=== PATIENT | male | born 1965 | race Caucasian/White ===

== ENCOUNTER 2025-05-27 10:52 | Emergency (ER) | payer BC, SELFPAY ==
--- OUTSIDE RECORDS SUMMARY | 2025-05-27 10:57 | XMS_ITS | Encounter Summary ---
Author Organization [facility] Address [address] [place] [address] Phone Care Team Providers Care Scene Shifter Name Role Phone Roddy Pinon Primary Care Provider Ariel Juarez MD Unavailable Reason for Visit * Reason Comments Medication Refill Encounter Details Date Type Department Care Team (Late st Contact Info) Description 05/11/2023 [facility] [place] [address] [place] [address] Roddy Pinon PAC [address] [place] [address] Medication Refill Social History Tobacco Use Types Packs/Day Years Used Date Smoking Tobacco: Never Smokeless Tobacco: Never Alcohol Use Standard Drinks/Week Comments Yes 0 (1 standard drink = 0.6 oz pur e alcohol) occassionally- beer on weekend PHQ-2 Answer Date Recorded Total Score - Questions 1-9 0 08/01 Sexually Active Control Partners Comments Yes Female Sex and Gender Information Value Date Recorded Sex Assigned at Not on file Legal Sex Male 10:46 AM CDT Gender Identity Not on file Sexual Orientation Not on file documented as of this encounter Miscellaneous Notes * Telephone Encounter - Teresa Salcedo RN - 05/12/2023 11:16 AM CST ezetimibe (ZETIA) 10 MG Tablet 90 Tablet 0 03/05/2023 -- Refill too soon MACHINE TENDER documented in this encounter Plan of Treatment Upcoming Encounters Date Type Department Care Team (Late st Contact Info) Description 09/20/2025 8:10 AM CDT Lab [facility] [address] [place] [address] 09/26/2025 7:45 AM CDT Office Visit [facility] [address] [place] [address] Roddy Pinon PAC [address] [place] [phone] documented as of this encounter Visit Diagnoses Diagnosis Mixed hyperlipidemia documented in this encounter Additional Health Concerns Assessment Noted Time PHQ-9 Depression Total Score: 0 08/22/19 7:00 AM CDT documented as of this encounter Care Teams Scene Shifter Relationship Specialty Start Date End Date Roddy Pinon PAC [address] [place] [phone] PCP - General Physician Online Journalist 02/28/23 Ariel Juarez MD [address] [place] [address] Consulting Physician Neurology 03/28/22 documented as of this encounter
--- OUTSIDE RECORDS SUMMARY | 2025-05-27 10:57 | XMS_ITS | Clinical Summary ---
Author Organization [facility] Address [address] [place] [address] Phone Care Team Providers Care Tubular Riveter Name Role Phone Roddy Pinon Primary Care Provider [phone] Ariel Juarez MD Unavailable [phone] Allergies No known active allergies Medications losartan (COZAAR) 50 MG TabletIndications :Primary hypertension TAKE 1 TABLET BY MOUTH DAILY 90 Tablet 3 11/15/2024 Active Active Problems Problem Noted Date Diagnosed Date Colon cancer screening 01/28/2020 Hyperlipidemia 10/16/2013 Overview (02/11/2022): HYPERLIPIDEMIA NEC/NOS Hypertension Encounters Date Type Department Care Team Description 03/17/2025 7:45 AM CDT Office Visit [facility] [place] [address] [place] [address] Roddy Pinon, WILLIAM Type 2 diabetes mellitus without complication, without long-term current use of insulin (Primary Dx); Primary hypertension; Mixed hyperlipidemia Discharge Disposition: Discharged to home or Selfcare 03/15/2025 9:40 AM CDT Lab [facility] [place] [address] [place] [address] Mixed hyperlipidemia; Primary hypertension; IFG (impaired fasting glucose) Discharge Disposition: Discharged to home or Selfcare 03/15/2025 Results Follow-Up [facility] - Primary Care - [place] [place] [address] Martha Contreras, MOBILE APPLICATION DEVELOPER, WEIGH AND CHARGE WORKER CMP (COMPREHENSIVE METABOLIC PANEL), LIPID PANEL, HEMOGLOBIN A1C W/ ESTIMATED GLUCOSE 03/14/2025 Travel from Last 3 Months Immunizations Immunization Administration Dates Next Due Influenza Vaccine 08/12/2013 TDAP Vaccine 09/20/2018 Family History Medical History Relation Name Comments Heart Attack Brother 1 Stroke Brother 2 Heart Attack Father quadruple bypas s Heart Disease Father High Cholesterol Father Hypertension Father Cancer Mother lung Lung Cancer Mother Hypertension Sister 1 No Known Problems Sister 2 No Known Problems Son 1 No Known Problems Son 2 Relation Name Status Comments Brother 1 Alive Brother 2 Alive Father Mother Sister 1 Alive Sister 2 Alive Son 1 Alive Son 2 Alive Social History Tobacco Use Types Packs/Day Years Used Date Smoking Tobacco: Never Passive Smoke Exposure: Never Smokeless Tobacco: Never Tobacco Cessation:Counseling Given: No Alcohol Use Standard Drinks/Week Comments Yes 0 (1 standard drink = 0.6 oz pur e alcohol) occassionally- beer on weekend [employer] Answer Date Recorded In the past 12 months has [employer] electric, gas, oil, or water company threatened to shut off services in your home? No 07/05/2024 Social Connection and Isolation Panel Answer Date Recorded In a typical week, how many times do you talk on the phone with family, friends, or neighbors? Once a week 07/05/2024 How often do you get together with friends or re latives? Once a week 07/05/2024 How often do you attend confucianist or judaism serv ices? Never 07/05/2024 Do you belong to any clubs o r organizations such as confucianist groups, unions, fraternal or athletic groups, or school groups? No 07/05/2024 How often do you attend meet ings of the clubs or organizations you belong to? Never 07/05/2024 Are you , , di vorced, , never , or living with a partner? 07/05/2024 AUDIT-C Answer Date Recorded Q1: How often do you have a drink containing alc ohol? 2-4 times a month 07/05/2024 Q2: How many drinks containi ng alcohol do you have on a typical day when you are drinking? 3 or 4 07/05/2024 Q3: How often do you have si x or more drinks on one occasion? Less than monthly 07/05/2024 Overall Financial Resource Strain (CARDIA) Answe r Date Recorded How hard is it for you to pa y for the very basics like food, housing, medical care, and heating? Not hard at all 07/05/2024 PHQ-2 Answer Date Recorded Total Score - Questions 1-9 0 07/2024 [facility] of Occupat ional Health - Occupational Stress Questionnaire Answer Date Recorded Do you feel stress - tense, restless, nervous, or anxious, or unable to sleep at night because your mind is troubled all the time - these days? Not at all 07/05/2024 Exercise Vital Sign Answer Date Recorde d On average, how many days pe r week do you engage in moderate to strenuous exercise (like a brisk walk)? 3 days 07/05/2024 On average, how many minutes do you engage in exercise at this level? 10 min 07/05/2024 Hunger Vital Sign Answer Date Recorded Within the past 12 months, y ou worried that your food would run out before you got the money to buy more. Never true 07/05/19 25 Within the past 12 months, t he food you bought just didn't last and you didn't have money to get more. Never true 07/05/2024 PRAPARE - Transportation Answer Date Re corded In the past 12 months, has l ack of transportation kept you from medical appointments or from getting medications? No 07/2024 In the past 12 months, has l ack of transportation kept you from meetings, work, or from getting things needed for daily living? No 07/05/2024 Housing Stability Vital Sign Answer Alex e Recorded In the last 12 months, was t here a time when you were not able to pay the mortgage or rent on time? No 07/05/2024 In the past 12 months, how m any times have you moved where you were living? 1 07/05/2024 At any time in the past 12 m [facility], were you homeless or living in a fpc (including now)? No 07/05/2024 Sexually Active Control Partners Comments Yes Female Sex and Gender Information Value Date Recorded Sex Assigned at Not on file Legal Sex Male 10:46 AM CDT Gender Identity Not on file Sexual Orientation Not on file Last Filed Vital Signs Vital Sign Reading Time Taken Comments Blood Pressure 118/80 03/17/2025 7:49 AM CDT Pulse 58 03/17/2025 7:49 AM CDT Temperature 37 C (98.6 F) 03/17/2025 7:49 AM CDT Respiratory Rate 20 03/17/2025 7:49 AM CDT Oxygen Saturation 98% 03/17/2025 7:49 AM CDT Inhaled Oxygen Concentration - - Weight 126.1 kg (278 lb) 03/17/2025 7:49 AM CDT Height 182.9 cm (6') 07/05/2024 7:04 AM AIRCRAFT MAINTENANCE MANAGER Body Mass Index 37.7 07/05/2024 7:04 AM AIRCRAFT MAINTENANCE MANAGER Plan of Treatment Upcoming Encounters Date Type Department Care Team (Late st Contact Info) Description 09/20/2025 8:10 AM CDT [facility] [place] [address] [place] [address] 09/26/2025 7:45 AM CDT Office Visit [facility] [address] [place] [phone] Roddy Pinon, WILLIAM [address] [place] [phone] Health Maintenance Due Date Last Done Comments Pneumococcal Immunization (5 0+ years) (1 of 2 - PCV) 08/09/1983 Cologuard 2009 Immunochemical Fecal Occult Blood 2009 Zoster Immunization (1 of 2) 2014 SARS-COV-2 Immunization (1 - season) 2025 Colonoscopy 02/23/2025 02/24/2020 Colorectal Cancer Screening 02/23/2025 Td Immunization Every 10 Yea rs (Adults With 1 Tdap) 09/20/2028 09/20/2018 Respiratory Syncytial Virus (RSV) Immunization (Adult) (1 - 1-dose 75+ series) 08/09/2039 Influenza Immunization Discontinued 08/12/2013 DTaP/Tdap/Td Immunization Discontinued 2018, 08/31/2018 Hepatitis C Virus (HCV) Screening Completed 01/18/2020 PSA Discussion Completed 02/11/2022, 01/18/2020, 05/10/2019 Hepatitis B Immunization Aged Out No longer eligible based on patient's age to complete this topic Human Papillomavirus (HPV) Immunization (No Doses Required) Completed Meningococcal Immunization (ACWY) Aged Out No longer eligible based on patient's age to complete this topic Rotavirus Immunization Aged Out No lo nger eligible based on patient's age to complete this topic Procedures Procedure Name Priority Date/Time Associated Diagnosis Comments HEMOGLOBIN A1C W/ ESTIMATED GLUCOSE Routine 03/15/2025 9:09 AM CDT Mixed hyperlipidemia Primary hypertension IFG (impaired fasting glucose) LIPID PANEL Routine 03/15/2025 9:09 AM CDT Mixed hyperlipidemia Primary hypertension IFG (impaired fasting glucose) CMP (COMPREHENSIVE METABOLIC PANEL) Routine 03/15/2025 9:09 AM CDT Mixed hyperlipidemia Primary hypertension IFG (impaired fasting glucose) PSA FREE & TOTAL Routine 02/11/2022 7:30 AM CDT Preventative health care (Adult) HEPATITIS C ANTIBODY Routine 01/18/2020 9:05 AM CDT Preventative health care (Adult) from Last 3 Months or Most Recently Relevant to Health Maintenance Results * (ABNORMAL) HEMOGLOBIN A1C W/ ESTIMATED GLUCOSE (03/15/2025 9:09 AM CDT) HGB-A1C 6.4(H) 4.0 - 6.0 % 03/15/2025 1:10 PM CDT [facility] Est Average Glucose 137.0 mg/dL 03/15/2025 1:10 PM CDT [facility] Blood Venipuncture / Unknown 03/15/2025 9:09 AM CDT 03/15/2025 9:09 AM CDT Narrative [facility] - 03/15/2025 1:10 PM CDT HEMOGLOBIN A1C: DIABETIC PATIENTS: WELL-CONTROLLED: 6.2 - 7.0 INTERMEDIATE WELL-CONTROLLED: 7.0 - 9.0 POORLY-CONTROLLED: >9.0 Specimens containing greater than 5% of Hemoglobin F may result in lower than expected % HbA1C results. Martha Contreras APRN, CNP CHEMISTRY ORDER FREEMAN Final Result [facility] [address] [place] [address] * (ABNORMAL) LIPID PANEL (03/15/2025 9:09 AM CDT) CHOLESTEROL 157 <200 mg/dL 03/15/2025 1:13 PM CDT [facility] TRIGLYCERIDES 170(H) <150 mg/dL 03/15/2025 1:13 PM CDT [facility] HDL CHOLESTEROL 33(L) >40 mg/dL 1:13 PM CDT [facility] LDL 90 <130 mg/dL 03/15/2025 1:13 PM CDT [facility] VLDL 34 10 - 50 mg/dL 03/15/2025 1:13 PM CDT [facility] CHOL/HDL RATIO 4.8(H) 0.0 - 4.4 03/15/2025 1:13 PM CDT [facility] NON-HDL CHOLESTEROL 124 <130 mg/dL 03/15/2025 1:13 PM CDT [facility] IS THE PATIENT REQUIRED TO BE FASTING? Yes 03/15/2025 1:13 PM CDT [facility] HAS THE PATIENT BEEN FASTING? Yes 03/15/2025 1:13 PM CDT [facility] Blood Venipuncture / Unknown 03/15/2025 9:09 AM CDT 03/15/2025 9:09 AM CDT us Martha Contreras MOBILE APPLICATION DEVELOPER, WEIGH AND CHARGE WORKER CHEMISTRY ORDER FREEMAN Final Result [facility] [address] [place] [address] * (ABNORMAL) CMP (COMPREHENSIVE METABOLIC PANEL) (03/15/2025 9:09 AM CDT) SODIUM 140 136 - 145 mmol/L 03/15/2025 1:13 PM CDT [facility] POTASSIUM 4.5 3.5 - 5.1 mmol/L 03/15/2025 1:13 PM CDT [facility] CHLORIDE 106 98 - 107 mmol/L 03/15/2025 1:13 PM CDT [facility] CO2, VENOUS 27 22 - 30 mmol/L 03/15/2025 1:13 PM CDT [facility] ANION GAP 11.5 <18.0 mmol/L 03/15/2025 1:13 PM CDT [facility] GLUCOSE 125(H) 70 - 99 mg/dL 03/15/2025 1:13 PM CDT [facility] BUN 23 8 - 26 mg/dL 03/15/2025 1:13 PM CDT [facility] CREATININE, BLOOD 1.18 0.70 - 1.30 mg/dL 03/15/2025 1:13 PM CDT [facility] BUN/CREATININE RATIO 19 12 - 20 ratio 03/15/2025 1:13 PM CDT [facility] TOTAL PROTEIN 7.0 6.0 - 8.0 g/dL 03/15/2025 1:13 PM CDT [facility] ALBUMIN 4.5 3.5 - 5.0 g/dL 03/15/2025 1:13 PM CDT [facility] A/G RATIO 1.8 1.0 - 2.2 03/15/2025 1:13 PM CDT [facility] CALCIUM 9.5 8.7 - 10.5 mg/dL 03/15/2025 1:13 PM CDT [facility] T BILI 0.7 0.2 - 1.2 mg/dL 03/15/2025 1:13 PM CDT [facility] SGOT (AST) 32 <43 U/L 03/15/2025 1:13 PM CDT [facility] SGPT (ALT) 42 <56 U/L 03/15/2025 1:13 PM CDT [facility] ALKALINE PHOSPHATASE 67 40 - 150 U/L 03/15/2025 1:13 PM CDT [facility] IS THE PATIENT REQUIRED TO BE FASTING? No 03/15/2025 1:13 PM CDT [facility] GFR, ESTIMATED >60 >=60 03/15/2025 1:13 PM CDT [facility] Comment: Creatinine Clearance is the preferred criteria for selecting drug dose adjustments in renally impaired patients. The GFR is provided as additional pertinent clinical information. GFR is reported in mL/min/1.73 sq m. Calculation based on the 2020 Chronic Kidney Disease Epidemiology Collaboration (CKD-EPI) equation refit without adjustment for race. GFR, EST. >60 >=60 1:13 PM CDT [facility] Comment: Creatinine Clearance is the preferred criteria for selecting drug dose adjustments in renally impaired patients. The GFR is provided as additional pertinent clinical information. GFR is reported in mL/min/1.73 sq m. Calculation based on the 2009 Chronic Kidney Disease Epidemiology Collaboration (CKD-EPI). GFR, EST. NONAFRICAN >60 >=60 03/15/2025 1:13 PM CDT [facility] Comment: Creatinine Clearance is the preferred criteria for selecting drug dose adjustments in renally impaired patients. The GFR is provided as additional pertinent clinical information. GFR is reported in mL/min/1.73 sq m. Calculation based on the 2009 Chronic Kidney Disease Epidemiology Collaboration (CKD-EPI). Blood Venipuncture / Unknown 03/15/2025 9:09 AM CDT 03/15/2025 9:09 AM CDT us Martha Contreras APRN, WEIGH AND CHARGE WORKER CHEMISTRY ORDER FREEMAN Final Result [facility] [address] [facility] [place] [address] * PSA FREE & TOTAL (02/11/2022 7:30 AM CDT) Prostatic Specific Antigen, Free 0.18 ng/mL [address] 02/11/2022 11:33 PM CDT [facility] PSA, TOTAL (PROSTATIC SPECIFIC ANTIGEN) 0.38 <4.00 ng/mL [address] 02/11/2022 11:33 PM CDT [facility] PSA, % FREE 47.4 % [address] 02/11/2022 11:33 PM CDT [facility] Comment: PSA NG/ML FREE PSA % EST PROB CANCER % 2.6- 4.0 0-27 24 4.1-10.0 0-10 56 11-15 28 16-20 20 21-25 16 >25 8 THESE ESTIMATES VARY WITH AGE, ETHNICITY, FAMILY HISTORY AND EVA RESULTS. THE DIAGNOSTIC USEFULNESS OF % FREE PSA HAS NOT BEEN ESTABLISHED IN PATIENTS WITH TOTAL PSA BELOW 2.6 NG/ML. IN MEN WITH A PSA LEVEL ABOVE 10 NG/ML, PROSTATE CANCER RISK IS DETERMINED BY TOTAL PSA ALONE. Blood Venipuncture / Unknown 02/11/2022 7:30 AM CDT 02/11/2022 7:30 AM CDT us Alyssa Blue MOBILE APPLICATION DEVELOPER, WEIGH AND CHARGE WORKER CHEMISTRY ORDERABLES Fi nal Result [facility] [address] [place] [address], * HEPATITIS C ANTIBODY (01/18/2020 9:05 AM CDT) hepatitis C antibody 0.18 <1 S/CO 01/18/2020 9:45 PM CDT [facility] Comment: Signal/Cutoff ratio < 0.79 is Nondetected Signal/Cutoff ratio 0.80-0.99 is Grayzone Signal/Cutoff ratio > 0.99 is Detected Supplemental assays are recommended if signal/cutoff ratio is >/=1.00. Signal/cutoff ratio result >/= 5.00 is 97% predictive of positivity for recombinant immunoblot assay (RIBA) and will be reported to the [place] Department of Public Health as required. Blood Venipuncture / Unknown 01/18/2020 9:05 AM CDT 01/18/2020 9:05 AM CDT us Rivre Mullins PAC CHEMISTRY ORDERABLES Fin al Result [facility] [address] [place] [address], [place] from Last 3 Months or Most Recently Relevant to Health Maintenance Insurance [facility] Care Teams Tubular Riveter Relationship Specialty Start Date End Date Roddy Pinon, PAC [address] [place] [phone] PCP - General Physician Universal Grinder Operator 02/28/23 Ariel Juarez MD [address] [place] [phone] Consulting Physician Neurology 03/28/22
--- OUTSIDE RECORDS SUMMARY | 2025-05-27 10:57 | XMS_ITS | Encounter Summary ---
Author Organization [facility] Address [address] [place] [address] Phone Care Team Providers Care Warehouse Director Name Role Phone River Mullins PAC Primary Care Provider U Alyssa Weir APRN, NETWORK INTERNSHIP Primary Care Provider Roddy Pinon PAC Primary Care Provider [phone] Ariel Juarez MD Unavailable [phone] Reason for Visit * Reason Comments Medication Refill Encounter Details Date Type Department Care Team (Late st Contact Info) Description 05/03/2021 [facility]ill [facility] [place] [address] [place] [phone] River Mullins, PAC Medication Refill Social History Tobacco Use Types [...] on file documented as of this encounter Plan of Treatment Upcoming Encounters Date Type Department Care Team (Late st Contact Info) Description 09/20/2025 8:10 AM CDT Lab [facility] - [place] [address] [place] [phone] 09/26/2025 7:45 AM CDT Office Visit [facility] - [facility] - [place] [address] [place] [phone] Roddy Pinon, PAC [address] [place] [phone] documented as of this encounter Visit Diagnoses Not on filedocumented in this encounter Additional Health Concerns Assessment Noted Time PHQ-9 Depression Total Score: 0 08/22/19 21 7:00 AM CDT documented as of this encounter Care Teams Warehouse Director Relationship Specialty Start Date End Date River Mullins PAC PCP - General Physician Tea Bag Packer 01/14/20 02/10/22 Alyssa Blue, BOILER HOUSE SUPERVISOR, NETWORK INTERNSHIP [address] [place], [place] [phone] PCP - General Advanced Practice Nurse 02/11/22 02/27/23 Roddy Pinon, PAC [address] [place] [phone] PCP - General Physician Tea Bag Packer 02/28/23 Ariel Juarez MD [address] [place] [phone] Consulting Physician Neurology 03/28/22 documented as of this encounter
--- OUTSIDE RECORDS SUMMARY | 2025-05-27 10:57 | XMS_ITS | Clinical Summary ---
Author Organization [facility] Address [address] [place] [address] Care Team Providers Care Dish Machine Operator Name Role Phone User, No Primary Care Provider Unavailabl e Source Comments [facility],non-owned Affiliates and Associated Physician Practices is amultiple site organization consisting of ambulatory clinics and hospital sitesin [place], [place], [place] and [place]. This disclosure is being madepursuant to the Care Everywhere program and may not contain all information available regarding this patient. Last updated 18.[facility] Allergies No known active allergies Medications * Be aware that medications may not be up to date on this document. Alwaysverify current medications with the patient. albuterol HFA (PROVENTIL;SHABBIR GURWINDER;PROAIR) 108 (90 Base) MCG/ACT inhaler Inhale 2 puffs by mouth every 6 hours as needed for Shortness of Breath, Wheezing or Cough 1 Inhaler 9 Active benzonatate (TESSALON) 200 MG capsule Take 1 capsule by mouth 3 times daily as needed for Cough 30 capsule 9 Active fluticasone propionate (FLONASE) 50 MCG/ACT nasal spray Raymond 2 sprays into each nostril once daily 1 bottles 9 Active predniSONE (DELTASONE) 20 MG tabletIndication s:Acute sinusitis, recurrence not specified, unspecified location Take 1 tablet by mouth 2 times daily 14 tablet 9 Active azithromycin (ZITHROMAX) 250 MG tabletIndication s:Acute sinusitis, recurrence not specified, unspecified location Take 2 tabs today, then 1 tab daily for next 4 days 6 tablet 9 Active albuterol HFA (PROVENTIL;SHABBIR GURWINDER;PROAIR) 108 (90 Base) MCG/ACT inhalerIndicatio ns:Acute bronchitis, unspecified organism Inhale 2 puffs by mouth every 6 hours as needed for Wheezing or Cough 1 Inhaler 9 Active Family History Medical History Relation Name Comments CVA Brother CAD (Coronary Artery Disease) Father Relation Name Status Comments Brother Father Social History Tobacco Use Types Packs/Day Years Used Date Smoking Tobacco: Never Smokeless Tobacco: Never Sex and Gender Information Value Date Recorded Sex Assigned at Not on file Legal Sex Male 5:14 PM CDT Gender Identity Not on file Sexual Orientation Not on file Last Filed Vital Signs Vital Sign Reading Time Taken Comments Blood Pressure 146/80 01/25/2019 9:05 AM CDT Pulse 95 01/25/2019 9:05 AM CDT Temperature 37.1 C (98.7 F) 01/25/2019 9:05 AM CDT Respiratory Rate 17 01/25/2019 9:05 AM CDT Oxygen Saturation 95% 01/25/2019 9:05 AM CDT Inhaled Oxygen Concentration - - Weight 122.5 kg (270 lb) 01/25/2019 9:05 AM CDT Height 182.9 cm (6') 01/25/2019 9:05 AM CDT Body Mass Index 36.62 01/25/2019 9:05 AM CDT Plan of Treatment Health Maintenance Due Date Last Done Comments COLOGUARD (AGES 45-75) - COL ON CA SCREENING 1964 COLON MONITORING 1964 COLONOSCOPY - COLON CA SCREENING 1964 CT COLONOGRAPHY - COLON CA SCREENING 1964 Colorectal Cancer Screening 1964 FIT - COLON CA SCREENING 1964 FLEX SIG - COLON CA SCREENING 1964 LIPID TESTING 1964 HIV SCREENING 08/09/1979 HEPATITIS C SCREENING 08/04/1982 DTAP/TDAP/TD VACCINES (1 - Tdap) 08/09/1983 PNEUMOCOCCAL VACCINE 50+ (1 of 1 - PCV) 2014 ZOSTER VACCINE (1 of 2) 2014 SCREENING FOR DIABETES 03/17/2018 DEPRESSION SCREENING 06/02/2024 COVID-19 VACCINE (2024-2 6 season) 2025 INFLUENZA VACCINE (#1) 2025 Respiratory Syncytial Virus (RSV) Vaccine Pt: or over 60 yrs (1 - 1-dose 75+ series) 08/09/2039 HEPATITIS B VACCINE Aged Out No longe r eligible based on patient's age to complete this topic HIB VACCINE Aged Out No longer eligi ble based on patient's age to complete this topic HPV VACCINE Aged Out No longer eligi ble based on patient's age to complete this topic MENINGOCOCCAL (Group B) VACC INE SHARED DECISION-MAKING Aged Out No longer eligibl e based on patient's age to complete this topic MENINGOCOCCAL GROUPS A/C/Y/W VACCINE Aged Out No longer eligible b ased on patient's age to complete this topic Insurance ANTHEM ANTHEM DENI Care Teams Dish Machine Operator Relationship Specialty Start Date End Date User, No PCP - General 02/21/16
[2025-05-27 11:03] VITALS: BP 142/100; PULSE 77; RESP 20; TEMP 36.6; O2SAT 97
--- NOTE | 2025-05-27 11:11 | ED.URI ---
HPI - URI/Sore Throat General Chief Complaint: Upper Respiratory Infection Stated Complaint: Nasal Congestion/Cough Time Seen by Provider: 05/27/25 11:11 Source: patient Mode of arrival: ambulatory Limitations: no limitations History of Present Illness HPI Narrative: is a 5-year-old male patient presenting to the clinic today with complaints of nasal congestion, sinus pressure, and cough x3 weeks. He has taken dskq-[id number]-lxekjio cold medications for his symptoms. He reports no fevers, chills, body aches. Coughing up white phlegm. MD elicited complaint: sore throat and nasal congestion Related Data Home Medications ?Medication ?Instructions ?Recorded ?Confirmed ?Last Taken ?Type losartan 50 mg tablet mg 05/27/25 Unknown History Allergies Allergy/AdvReac Type Severity Reaction Status Date / Time No Known Allergies Allergy Verified 05/27/25 10:53 Review of Systems Review of Systems: Pertinent positives per HPI. Patient denies any fever, chills, rash, visual changes, dizziness, shortness of breath, chest pain, palpitations, nausea, vomiting, diarrhea, constipation, abdominal pain, or any urinary issues. PMFSH Comments At the time of my signature, I reviewed and agree with the nursing past medical, surgical, social, and family history. There is no relevant family history pertinent to the patient complaint. Exam Narrative: General: Well-developed, obese, in no apparent distress Head: Normocephalic, atraumatic Eyes: Pupils equally round and reactive to light bilaterally, EOM intact, sclera and conjunctive clear, no discharge, lids normal Ears: TMs intact and congested, ear canals clear, no drainage, grossly hearing normal. Nose: Nares patent, yellow nasal discharge, moderate inflammation, maxillary and frontal sinus tenderness. Mouth: Oral pharynx red without lesions or masses, good dentition, MMM. Postnasal drip Neck: Supple, trachea midline, no enlargement of anterior or posterior cervical nodes, no thyroid masses or goiter palpable. Cardio: Regular rate and rhythm, s1 and s2 normal, no murmur appreciated. Resp: Clear to auscultation bilaterally, no rhonchi, rales, wheezing or rubs Course Course Level of Care: Express Care Visit Vital Signs Vital signs: Vital Signs Temperature 36.6 C 05/27/25 11:03 Pulse Rate 77 05/27/25 11:03 Respiratory Rate 20 05/27/25 11:03 Blood Pressure 142/100 H 05/27/25 11:03 Pulse Oximetry 97 05/27/25 11:03 Oxygen Delivery Room Air 05/27/25 11:03 Temperature 36.6 C 05/27/25 11:03 Pulse Rate 77 05/27/25 11:03 Respiratory Rate 20 05/27/25 11:03 Blood Pressure 142/100 H 05/27/25 11:03 Pulse Oximetry 97 05/27/25 11:03 Oxygen Delivery Room Air 05/27/25 11:03 MDM MDM Narrative Medical decision making narrative: At the time of visit patient is resting comfortably on the exam table. Patient appears to be nontoxic. Complaints of nasal congestion, sinus pressure, and cough x3 weeks. He has taken awwn-whg-yhfnmso cold medications for his symptoms. He reports no fevers, chills, body aches. Coughing up white phlegm. On exam patient has bilateral TMs intact and congested, yellow nasal drainage, moderate anterior turbinate inflammation, maxillary and frontal sinus tenderness, oral pharynx red with postnasal drip, no cervical lymphadenopathy, lung sounds are clear, heart rates regular rate and rhythm Plan: I suspect patient has acute bacterial rhinosinusitis. Prescription for Augmentin, Tessalon Perles, prednisone was sent to the pharmacy. Supportive measures were discussed with the patient and they voiced understanding discharge instructions and agrees to treatment plan. Return precautions reviewed Differential Diagnosis Differential Diagnosis: Differential diagnostic considerations for upper respiratory infection include upper respiratory infection, croup, otitis media, sinusitis, viral infection, bronchitis, influenza, pharyngitis, strep, uvulitis. Discharge Plan Discharge Clinical Impression: Acute bacterial rhinosinusitis Patient Disposition: Home Condition: Stable Instructions: Antibiotic Form, Rhinosinusitis (ED) Additional Instructions: Take prescription medications only as prescribed-prednisone, Augmentin, and Tessalon Perles May take Coricidin HBP for cold/flu symptoms Increase fluids and stay well hydrated May take Tylenol or motrin as directed on bottle for pain/fever May use Flonase 1 spray in each nare daily May take OTC antihistamines such as Zyrtec or Claritin daily as directed on bottle May apply Vicks vapor rub to chest to open sinuses Sinus rinses for congestion Cepacol spray, cough drops, throat lozenges, warm tea with honey/lemon, gargle salt water to soothe throat BRAT diet for diarrhea Clear liquids x 24 hours then advance as tolerated for nausea/vomiting Go to the ED if you develop a worsening in your condition- high fever not controlled by Tylenol or Motrin, dehydration, weakness, lethargy, shortness of breath, or chest pain. Follow up with your PCP in 3-5 days if symptoms persist. Patient Language: Cameroonian Prescriptions: New prednisone 20 mg tablet 40 mg PO DAILY 5 Days Qty: 10 0RF benzonatate 200 mg capsule 200 mg PO TID 7 Days Qty: 21 0RF amoxicillin-pot clavulanate 875-125 mg tablet 1 tablet PO Q12H 7 Days Qty: 14 0RF No Action losartan 50 mg tablet Follow-up/Referrals: PHYSICIAN,INTERPERSONAL COMMUNICATIONS PROFESSOR [Primary Care Provider, Internal Medicine] Time of Disposition: 11:16 Quality NIHSS Nursing Documentation ED NIHSS nursing documentation: reviewed/agree
== END 2025-05-27 11:21 | disposition home or self-care (01) ==
PROVIDERS: Emergency Provider Nurse Practitioner Family
DX: J01.90 Acute sinusitis, unspecified (principal)
CPT/HCPCS: 99203; G0463